=== PATIENT | male | born 1995 | race Caucasian/White ===

== ENCOUNTER 2025-04-02 15:29 | Emergency (ER) | payer OTHER, SELFPAY ==
[2025-04-02 15:38] VITALS: BP 117/74; PULSE 76; RESP 20; TEMP 36.6; O2SAT 98; BMI 27.1
--- OUTSIDE RECORDS SUMMARY | 2025-04-02 16:25 | XMS_ITS | Clinical Summary ---
Author Organization [facility] Address [address] [place] [id number] Care Team Providers Care Decontamination Worker Name Role Phone Shameka Alan DO Primary Care Provider [phone] Allergies No known active allergies Medications FLUoxetine (PROZAC) 20 mg capsuleIndicati ons:MARISOL (generalized anxiety disorder) Take 2 Capsules (40 mg) by mouth once daily in the morning. 180 Capsule 5 Active FLUoxetine 20 mg capsuleIndicati ons:MARISOL (generalized anxiety disorder) Take 2 Capsules (40 mg) by mouth once daily in the morning. 180 Capsule 5 03/26/20 25 Discontinu ed(Reorder (E-cancel not sent)) Active Problems Problem Noted Date Diagnosed Date Dyslipidemia 07/15/2023 Vitamin D deficiency 07/15/2023 Anxiety 05/21/2021 Encounters Date Type Department Care Team Description 03/26/2025 Refill [facility] [address] [place] [address] Shameka Alan DO Refill Request (Fluoxetine) from Last 3 Months Immunizations Immunization Administration Dates Next Due DTaP 09/12/2001, 8,1996,11/08,1996 Hepatitis A (Peds) 01/25/2009,07/04/2008 Hepatitis B (Peds) 1996 Hepatitis B, Unspecified 1996,1996 Inactivated Polio Vaccine 09/12/2001,,1996,09/04 Influenza,LAIV3 Live Intrana rupert (Flumist) 06/04/2010,05/07/2006 MMR 09/12/2001,08/07/1997 Meningococcal Vaccine (Menactra) 07/04/2008 Td, Preservative Free (age >= 7 Years) Tdap 07/04/2008 Varicella Vaccine 01/25/2009 Family History Medical History Relation Name Comments Cancer-breast Mother Diabetes type II No Family History Relation Name Status Comments Mother Social History Tobacco Use Types Packs/Day Years Used Date Smoking Tobacco: Never Passive Smoke Exposure: Past Smokeless Tobacco: Current Chew Tobacco Cessation:Ready to Q uit: Not Asked; Counseling Given: Not Answered Comments:ZYN pouch Alcohol Use Standard Drinks/Week Comments Yes 8 (1 standard drink = 0.6 oz pur e alcohol) PHQ-2 Answer Date Recorded PHQ-2 TOTAL SCORE 1 09/07/2024 Social Connections Answer Date Recorded Do you often feel lonely or isolated from those around you? 0 10/27/2023 Alcohol Use Answer Date Recorded How often do you have a drink containing alcohol ? 3 07/15/2023 How many drinks containing a lcohol do you have on a typical day when you are drinking? 2 07/15/2023 How often do you have five or more drinks on one occasion? 3 07/15/2023 Financial Resource Strain Answer Date R ecorded Difficulty of Paying Living Expenses 3 10/27/2023 Difficulty of Paying Living Expenses Not on file 10/27/2023 Food Insecurity Answer Date Recorded Do you worry your food will run out before you are able to buy more? 1 10/27/2023 Transportation Needs Answer Date Record ed Does lack of transportation keep you from medica l appointments? 1 10/27/2023 Does lack of transportation keep you from work, meetings or getting things that you need? 1 10/27/2023 Housing Stability Answer Date Recorded What is your housing situation today? 1 10/27/2023 Utilities Answer Date Recorded Do you have trouble paying f or utilities (for example, heat, electricity, water, phone)? 1 10/27/2023 Sex and Gender Information Value Date Recorded Sex Assigned at Not on file Legal Sex Male 7:11 AM [employer] Gender Identity Not on file Sexual Orientation Not on file Obstetrics History Last Filed Vital Signs Vital Sign Reading Time Taken Comments Blood Pressure 116/80 09/07/2024 11:57 AM [employer] Pulse 69 09/07/2024 11:19 AM [employer] Temperature - - Respiratory Rate - - Oxygen Saturation 99% 07/15/2023 10:05 AM [employer] Inhaled Oxygen Concentration - - Weight 85.3 kg (188 lb) 09/07/2024 11:19 AM [employer] Height 177.8 cm (5' 10) 07/15/2023 10:05 AM [employer] Body Mass Index 26.98 07/15/2023 10:05 AM [employer] Plan of Treatment Health Maintenance Due Date Last Done Comments Hepatitis B series for 19+ (4 of 4 - 4-dose series) 01/15/1997 1996, 1996, 1996 HPV series for age 9-45 (1 - 3-dose SCDM series) 2023 BMI (ht and wt on same day) for age 18+ 07/15/2024 07/15/2023 COVID-19 vaccine series (2023- season) 2025 Influenza Vaccine (#1) 2025 06/04/2010, 2005 Depression screening for age 12+ 09/07/2025 09/07/2024, 10/27/2023, 09/14/2023, Additional history exists Tetanus booster 05/21/2031 05/21/2021, 07/04/2008 RSV vaccine for adults or (1 - 1-dose 75+ series) 2071 HIV for age 15-65 Completed 07/15/2023 Hepatitis C screening for age 18-79 Completed 07/15/2023 Pneumococcal series for age 6-49 Aged Out No longer eligible based on patient's age to complete this topic Procedures Procedure Name Priority Date/Time Associated Diagnosis Comments ANTI HIV 1/2 Routine 07/15/2023 10:54 AM [employer] Screening for HIV (human immunodeficiency virus) ANTI HCV Routine 07/15/2023 10:54 AM [employer] Need for hepatitis C screening test from Last 3 Months or Most Recently Relevant to Health Maintenance Results * ANTI HCV (07/15/2023 10:54 AM [employer]IATURE [employer]DEL [employer]) HEPATITIS C ANTIBODY Non-Reacti ve Non-React stanislaw 07/15/2023 3:47 PM [employer]DEL [employer] [facility] Comment:Please note, per www .CDC.gov: If a patient is known to be at high risk of HCV infection, or is symptomatic, and the physician's suspicion of HCV infection is high, HCV RNA testing is often employed and is of diagnostic value, even after an initial negative anti-HCV test result. Blood BLOOD SPECIMEN / Unknown Venipuncture / Unknown 07/15/2023 10:54 AM [employer]ATURE MODEL [employer] 07/15/2023 10:56 AM [employer]DEL [employer] Shameka Alan DO SEND OUTS Final Resu lt Performing Organization Address [facility] Co de Phone Number [facility] [email or web address] [facility] [address] [place] [id number], [place] * ANTI HIV 1/2 [71927.0] (07/15/2023 10:54 AM MINIATURE [employer]DEL [employer]) HIV-1/HIV-2 SCREEN Non-Reacti ve Non-Reacti ve 07/15/2023 3:48 PM [employer] [facility] Comment:HIV-1 p24 and HIV-1/ HIV-2 Ab Not Detected. Blood BLOOD SPECIMEN / Unknown Venipuncture / Unknown 07/15/2023 10:54 AM [employer]ATURE [employer]DEL [employer] 07/15/2023 10:56 AM [employer]IATURE MODEL [employer] Shameka Alan DO SEND OUTS Final Resu lt Performing Organization Address [facility]/ZIP Co de Phone Number [facility] [employer] [facility] [address] [place] [phone], from Last 3 Months or Most Recently Relevant to Health Maintenance Insurance [facility] [employer] * Guarantor: ADRIENNE WEST Account Type Relation to Patient Date of Phone Billing Address Personal/Family [address] [place] [address] Care Teams Decontamination Worker Relationship Specialty Start Date End Date Shameka Alan DO [address] [place] [address] PCP - General Family Practice 07/15/23
--- NOTE | 2025-04-02 16:40 | ED.GENADULT ---
HPI - General Adult General Date Seen: 04/02/25 Chief complaint: Laceration/Wound Stated complaint: Cut on right wrist Time Seen by Provider: 04/02/25 15:31 History of Present Illness HPI narrative: Patient is a 29-year-old generally healthy young man who was working on down wing some tile in the bathroom at his house. His arm went through the wall and he cut his right arm on a sharp tile edge. No complaints of numbness or loss of function. Tetanus up-to-date. Related Data Home Medications ?Medication ?Instructions ?Recorded ?Confirmed duloxetine 40 mg capsule,delayed 40 mg PO DAILY 04/02/25 04/02/25 release Allergies Allergy/AdvReac Type Severity Reaction Status Date / Time No Known Drug Allergies Allergy Verified 04/02/25 15:34 PFSH PFS Social History Smoking Status: Never smoker Non-prescribed substance use: denies use service: No Exam Narrative: Exam Narrative: Vital signs reviewed In general, alert, well-appearing young man. Extremities: Examination of the right arm shows a rectangular flap type laceration which is approximately 4 cm in total length. There is some venous oozing, no arterial bleeding. Radial pulses normal, distal CMS is intact. Const: Vital Signs, click to edit/add: Vital Signs - 24 hr 04/02/25 15:38 Temperature 97.8 F Pulse Rate [Pulse Oximeter] 76 Respiratory Rate 20 Blood Pressure [Ri ght Upper Arm] 117/74 Pulse Oximetry 98 Oxygen Delivery Me thod Room Air Course Course ED Course: Procedure note: Wound was anesthetized using lidocaine with epinephrine and then cleaned with sterile water. Explored, no evidence of foreign body or injury to deeper structures. I used 4-[address] a total of 8 simple interrupted superficial sutures. He tolerated this well without immediate complication. Bleeding controlled. Dressing applied by the fisheries technician. Discussed routine wound care, suture removal in clinic in 7-10 days, return any time for signs of infection. Vital Signs Vital signs: Initial Vital Signs Temperature 97.8 F 04/02/25 15:38 Temperature Source Temporal Artery Scan 04/02/25 15:38 Pulse Rate 76 04/02/25 15:38 Respiratory Rate 20 04/02/25 15:38 Blood Pressure 117/74 04/02/25 15:38 Blood Pressure Mean 88 04/02/25 15:38 Pulse Oximetry 98 04/02/25 15:38 Oxygen Delivery Method Room Air 04/02/25 15:38 Vital Signs Temperature 97.8 F 04/02/25 15:38 Pulse Rate 76 04/02/25 15:38 Respiratory Rate 20 04/02/25 15:38 Blood Pressure 117/74 04/02/25 15:38 Pulse Oximetry 98 04/02/25 15:38 Oxygen Delivery Method Room Air 04/02/25 15:38 Temperature 97.8 F 04/02/25 15:38 Pulse Rate 76 04/02/25 15:38 Respiratory Rate 20 04/02/25 15:38 Blood Pressure 117/74 04/02/25 15:38 Pulse Oximetry 98 04/02/25 15:38 Oxygen Delivery Method Room Air 04/02/25 15:38 Discharge Plan Discharge Clinical Impression: Laceration of arm Qualifiers: Encounter type: initial encounter Laterality: right Qualified Code(s): S41.111A - Laceration without foreign body of right upper arm, initial encounter Patient Disposition: Home, Self-Care Condition: Improved Instructions: Laceration (DC) Additional Instructions: Keep wound clean dry and protected. Suture removal in about 7-10 days, this can be done irregular clinic or at urgent care. Return any time for signs of infection such as increasing swelling, redness, pain. Ibuprofen or Tylenol as needed. I would change the dressing daily, though you can leave today's dressing on for couple of days as long as it is feeling okay. Then, an ointment such as Vaseline or Aquaphor and gauze or other covering while it heals. Prescriptions: No Action duloxetine 40 mg capsule,delayed release(DR/EC) 40 mg PO DAILY Stand Alone Forms: MyHealth Info Instructions
== END 2025-04-02 16:26 | disposition home or self-care (01) ==
LOC: ED 16:23
PROVIDERS: Emergency Provider Emergency Medicine; PCP Family Medicine
DX: S41.111A Laceration without foreign body of right upper arm, initial encounter (principal); W26.9XXA Contact with unspecified sharp object(s), initial encounter
CPT/HCPCS: 12002; 99283; 99284